=== PATIENT | female | born 1955 | race Caucasian/White ===

== ENCOUNTER 2016-08-20 15:23 | Emergency (ER) | payer MEDICAID, OTHER ==
[2016-08-20 15:44] VITALS: BP 166/89; PULSE 105; RESP 18; TEMP 98; O2SAT 97
[2016-08-20] MEDS ORDERED: CEPHALEXIN 500MG PREPACK#4 BTL TAKEHOME ONE (19:00)
--- NOTE | 2016-08-20 19:00 | UCPHY ---
H & P Time Seen by Provider: 08/20/16 15:46 Patient Type: New HPI/ROS: 60-year-old female presents complaining of tripped on the corner of a rug, fell putting her elbow through a drywall. This happened last night and at that time she did not believe it was not bad injury and has not come to Urgent Care. Today upon reassessing the injury she noticed there was a large laceration and came in to have it evaluated. No numbness or tingling in distal extremity on involved side. Review of systems General no fever no chills no weakness HEENT no eye pain no eye discharge. No eye redness, no sore throat Respiratory no cough, no shortness of breath Cardiac no chest pain, no peripheral edema GI no abdominal pain, no diarrhea, no constipation, no nausea, no vomiting no flank pain, no hematuria, no dysuria Musculoskeletal no myalgias, no joint pain Heme no easy bruising, no easy bleeding Endo no polyuria, no polydipsia Skin no rashes, no pruritus Neuro no syncope, no dizziness, no headaches Psych is no suicidal ideation, no homicidal ideation Past Medical/Surgical History: Noncontributory Social History: Alcohol socially, denies drug use Smoking Status: Never smoked Physical Exam: 60-year-old female Alert and oriented in no acute distress nontoxic appearance, afebrile Atraumatic normocephalic Neck no JVD Lungs clear to auscultation, no respiratory distress Heart regular rate and rhythm Extremities no cyanosis clubbing edema Except right elbow Right lateral aspect of elbow with large complex flap laceration, approximately 10 cm in length Large amount of subcutaneous tissue exposed, areas of denuded skin Constitutional: Initial Vital Signs Temperature (C) 36.6 C 08/20/16 15:39 Heart Rate 105 H 08/20/16 15:39 Respiratory Rate 18 08/20/16 15:39 Blood Pressure 166/89 H 08/20/16 15:39 O2 Sat (%) 97 08/20/16 15:39 O2 Delivery Mode Room Air Allergies/Adverse Reactions: Penicillins Allergy (Verified 08/20/16 16:21) Home Medications: Medication Instructions Recorded None 06/24/09 Cephalexin 500 mg PO BID #20 tablet 08/20/16 Medical Decision Making Procedures: Procedure note-laceration The wound was irrigated with copious amounts of saline. Lidocaine 1% was used for local anesthetic. 19 simple interrupted sutures were placed. 4-0 Ethilon was used. Patient tolerated procedure well. Patient seen and evaluated for large right elbow laceration Impression Gaping laceration will need repair despite it being greater than 12 hours at this time Explained to patient the risk of repairing the laceration Patient understands agrees to have repair and will be started on antibiotics Plan Patient placed in sling Keep clean and dry Sutures out in 12 days Cephalexin 500 twice daily, prophylaxis for delayed repair ED Course/Re-evaluation: Patient seen and evaluated for large right elbow laceration Impression Gaping laceration will need repair despite it being greater than 12 hours at this time Explained to patient the risk of repairing the laceration Patient understands agrees to have repair and will be started on antibiotics Plan Keep clean and dry Sutures out in 12 days Cephalexin 500 twice daily, prophylaxis for delayed repair - Data Points Medications Given: Discontinued Medications Cephalexin (Keflex 500 Mg Prepack#4) 1 btl TAKEHOME EDNOW ONE PRN Reason: Protocol Stop: 08/20/16 19:01 Last Admin: 08/20/16 19:16 Dose: 1 btl Departure - Departure Disposition: Home, Routine, Self-Care Clinical Impression: Elbow laceration Condition: Good Instructions: Care For Your Stitches (ED), Laceration (ED) Additional Instructions: Suture removal in 12 days. Consider wound check in 48-72 hours. Referrals: ROCKY COOPER,. [Primary Care Provider] - As per Instructions Prescriptions: Cephalexin 500 mg PO BID #20 tablet - PQRS PQRS Measurement: na
== END 2016-08-20 19:18 | disposition home or self-care (01) ==
LOC: CED 15:23
PROC: 0HQDXZZ Repair Right Lower Arm Skin, External Approach (ICD-10-PCS; principal; 2016-08-20)
DX: S51.011A Laceration without foreign body of right elbow, initial encounter (principal); W22.8XXA Striking against or struck by other objects, initial encounter
CPT/HCPCS: 12004-PO; 99203-PO; G0463-PO

== ENCOUNTER 2016-11-05 12:00 | Day surgery (SDC) | payer MEDICAID ==
[~2016-11-05 12:00] MED LIST: AVITENE POWDER 1 GM JAR TP ONE; BACITRACIN 50,000 UNITS/10 ML SYR IRR ONE; BUPIVACAINE/EPI 0.25% 30 ML SDV ONE; THROMBIN (BOVINE) 5,000 UNIT VIAL TP ONE
[2016-11-05] MEDS ORDERED: fentaNYL 100 MCG/2 ML INJ ONE ×2 (12:54→15:54)
[2016-11-05] MEDS ORDERED: PROPOFOL 200 MG/20 ML VIAL ONE (12:56)
[2016-11-05] MEDS ORDERED: PROPOFOL/EMULSION 500 MG/50 ML BOTTLE IV ONE ×2 (12:56→15:07)
[2016-11-05] MEDS ORDERED: METOCLOPRAMIDE 10 MG/2 ML VIAL ONE (13:00)
[2016-11-05] MEDS ORDERED: ONDANSETRON 4 MG/2 ML VIAL ONE (13:00)
[2016-11-05] MEDS ORDERED: ROCURONIUM 50 MG/5 ML VIAL ONE (13:00)
[2016-11-05] MEDS ORDERED: ceFAZolin 2 GM/DEXTROSE 100 ML IV ONE (13:00)
[2016-11-05] MEDS ORDERED: LR 1,000 ML IV ONE (13:08)
[2016-11-05] MEDS ORDERED: LIDOCAINE 1% 5 ML SDV ID PRN (13:08)
[2016-11-05] MEDS ORDERED: MIDAZOLAM 2 MG/2 ML VIAL ONE (13:10)
[2016-11-05] MEDS ORDERED: CEFAZOLIN 2 GM/DEXTROSE/100 ML BAG IV ONE (13:11)
[2016-11-05] MEDS ORDERED: METOPROLOL TARTRATE 5 MG/5 ML INJ ONE (13:55)
[2016-11-05] MEDS ORDERED: BUPIVACAINE 0.25% 30 ML SDV ONE (13:56)
[2016-11-05] MEDS ORDERED: SURGIFLO MATRIX KIT WITH THROMBIN TP ONE (14:40)
--- NOTE | 2016-11-05 16:20 | GOP ---
[f rep st] OPERATIVE REPORT DATE OF OPERATION: 11/05/2016 SURGEON: Devin Benoit MD ANESTHESIA: General endotracheal. PREOPERATIVE DIAGNOSIS: Large herniated nucleus pulposus at L4-5 with right-sided L5 radiculopathy and severe canal stenosis. POSTOPERATIVE DIAGNOSIS: Large herniated nucleus pulposus at L4-5 with right-sided L5 radiculopathy and severe canal stenosis. PROCEDURE PERFORMED: 1. Left L4 hemilaminotomy, medial facetectomy, microdiskectomy. 2. Use of the operative microscope. 3. Neurophysiologic monitoring, including somatosensory-evoked potentials and free run EMG. FINDINGS: Large herniated nucleus pulposus at L4-5. SPECIMENS: None. ESTIMATED BLOOD LOSS: 50 cc. INDICATIONS: The patient is a 61-year-old woman with a history of bilateral leg pain, but her pain most recently has been most severe in the right hip. She has numbness in an L5 distribution on the right foot and has some EHL and dorsiflexor weakness as well. Her MRI shows a very large disk herni ation from the left side at L4-5 with some compression of the bilateral L5 traversing nerve roots an d severe canal stenosis. She was scheduled today for left-sided hemilaminotomy with the possibility of converting to full laminectomy if we are unable to get the complete disk from that side. DESCRIPTION OF PROCEDURE: After informed consent was obtained from the patient, the patient was bro ught to the operating room and a formal time-out was performed, identifying the patient by name, [facility] record number, and date of . Preoperative antibiotics were given. The endotracheal tube was placed, and general endotracheal anesthesia was smoothly induced. The patient was then turned i nto the prone position on the Luis frame. All appropriate neurophysiological monitoring leads wer e placed, and baseline potentials were within normal range. A lateral radiograph was used to confir m the L4-5 disk space, and a roughly 2 cm incision was marked in the midline surrounding that marker . The back was then prepped and draped in the normal sterile fashion. 10 cc of 0.25% Marcaine with epinephrine was infiltrated in the skin for hemostasis. The skin incision was then made using a 10 blade. The subcutaneous tissues were dissected using monopolar electrocautery, and the fascia was opened just to the left of the midline, exposing the L4 spinous process. This portion of the proced ure was somewhat difficult due to the patient's morbid obesity, but we were able to continue this di ssection down, lateralizing the paraspinous muscles from the L4 spinous process, and identifying the L4 lamina. Another marker was placed. A lateral radiograph was the used to confirm the correct lo cation. The operative microscope was then brought on the field, and the remainder of the procedure was performed under high-power magnification. The high-speed drill was first used to drill a hemila minotomy on the left side, and about 2 mm of the medial facet was also removed. Care was taken not to remove more than half of the facet out toward the pars interarticularis. At this point, the yell ow ligament was removed. The nerve root was identified, which was being pushed posteriorly by the d isk anteriorly. The nerve root was then retracted slightly medially, and the disk material could be seen, which had herniated all the way lateral to the nerve. Some of this was removed using micropi tuitary forceps. The larger fragment of the disk was then seen in the subligamentous supraligamento us space, beneath the dura. This was carefully mobilized using nerve hooks, and then this very larg e piece of disk was removed en bloc. This provided excellent decompression of the left-sided nerve root, and we were able to reach across with microdissectors and nerve hooks to be sure that the enti rety of the canal was completely decompressed. A few more small fragments of the disk were removed from within the L4-5 disk space, and a lateral radiograph was performed with a marker in the space, confirming the correct location. At this point, I did not see that there were any further fragments , and the canal seemed to be very well decompressed, reaching all the way over to the other side. I did not think there was a reason to do the hemilaminotomy on the right side. At this point, the wo und was copiously irrigated using bacitracin irrigation. A small amount of Marcaine-soaked Gelfoam was placed over the nerve root and then removed. All bleeding was controlled with bipolar electroca utery and Gelfoam. The fascia was closed in the midline using interrupted 0 Vicryl. The deep dermi s was closed using interrupted 2-0 Vicryl. The skin was closed with subcuticular Monocryl, and Derm abond was placed over the wound. The sterile dressings were placed. The patient was then turned ba ck into the supine position, where she was extubated, and her neurologic condition was at her baseli ne. She was transferred to the PACU in stable condition. There were no operative complications. I was scrubbed and present for the entire procedure. All sponge and needle counts were correct at th e end of the case. FLUIDS AND URINE OUTPUT: Per the anesthesia record. DRAINS: None. /[id number]/MODL
[2016-11-05] MEDS ORDERED: OXYCODONE/APAP 5/325 TAB ONE (16:25)
== END 2016-11-05 17:35 | disposition home or self-care (01) ==
LOC: FSGY 12:00 → EEVIPCON 13:45 → FSGY 17:35
PROVIDERS: ATTEND Neurological Surgery
PROC: 0SB20ZZ Excision of Lumbar Vertebral Disc, Open Approach (ICD-10-PCS; principal; 2016-11-05 13:45)
DX: M51.16 Intervertebral disc disorders with radiculopathy, lumbar region (principal); I10 Essential (primary) hypertension; E66.01 Morbid (severe) obesity due to excess calories; Z68.41 Body mass index [BMI] 40.0-44.9, adult
CPT/HCPCS: J0690; J2250; J2405; J2704; J2765; J3010